=== PATIENT | male | born 1985 | race Caucasian/White ===

== ENCOUNTER 2023-01-11 | Outpatient (REF) | payer BC, SELFPAY ==
[2023-01-12 15:45] LABS: Bilirubin Urine NEGATIVE (NEGATIVE); Blood Urine TRACE-I (NEGATIVE); Clarity Urine CLEAR (CLEAR); Color Urine YELLOW (YELLOW); Glucose Urine UA NEGATIVE (NEGATIVE); Ketones Urine NEGATIVE (NEGATIVE); Leukocyte Esterase Urine NEGATIVE (NEGATIVE); Nitrite Urine NEGATIVE (NEGATIVE); Protein Urine NEGATIVE (NEG/TRACE); Specific Gravity Urine 1.025 (1.005-1.025); Urobilinogen Urine 0.2 EU/dL (0.2-1.0)
[2023-01-12 15:47] LABS: Urine Microscopic Indicated YES
[2023-01-12 15:57] LABS: Bacteria Urine TRACE #/HPF (NONE SEEN); Cast Seen? NONE SEEN #/LPF (NONE SEEN); Crystals Seen? None Seen #/HPF (None Seen); Mucus Urine TRACE (NONE SEEN); Squamous Epithelial Cell Urine RARE #/LPF (NONE/RARE); WBC Urine 0-2 #/HPF (NONE SEEN)
== END 2023-01-11 00:01 | disposition home or self-care (01) ==
LOC: LAB
PROVIDERS: PCP Nurse Practitioner Primary Care; Visit Provider Nurse Practitioner Primary Care
DX: R39.11 Hesitancy of micturition (principal)
CPT/HCPCS: 81001; 87086

== ENCOUNTER 2023-01-11 16:04 | Outpatient (OUT) | payer BC, SELFPAY ==
[2023-01-11 16:54] LABS: Alanine Aminotransferase 25 U/L (16-63); Albumin Globulin Ratio 1.1; Albumin Level 3.9 g/dL (3.4-5.0); Alkaline Phosphatase 71 U/L (46-116); Anion Gap 10.5; Aspartate Amino Transferase 16 U/L (15-37); BUN Creatinine Ratio 10.3; Bilirubin Total 0.6 mg/dL (0.2-1.0); Calcium 8.8 mg/dL (8.5-10.1); Carbon Dioxide 27.5 mmol/L (21.0-32.0); Chloride 104 mmol/L (98-107); Estimated GFR (African America >60 (>=60); Estimated GFR (Non-African Ame >60 (>=60); Globulin 3.4 g/dL; Glucose 93 mg/dL (74-106); Sodium 138 mmol/L (136-145); Total Protein 7.3 g/dL (6.4-8.2)
[2023-01-11 18:41] LABS: Prostate Specific Antigen Dx 1.37 ng/mL (<=4.00)
== END 2023-01-11 16:05 | disposition home or self-care (01) ==
PROVIDERS: PCP Nurse Practitioner Primary Care; Visit Provider Nurse Practitioner Primary Care
DX: R39.11 Hesitancy of micturition (principal)
CPT/HCPCS: 36415; 80053; 84153

== ENCOUNTER 2023-11-14 13:11 | Outpatient (OUT) | payer BC, SELFPAY | END 2023-11-14 13:12 | disposition home or self-care (01) | LOC: PST 13:11 | PROVIDERS: PCP Nurse Practitioner Primary Care; Visit Provider Surgery | DX: Z01.818 Encounter for other preprocedural examination (principal); K62.5 Hemorrhage of anus and rectum ==

== ENCOUNTER 2023-11-21 06:46 | Day surgery (SDC) | payer BC, SELFPAY ==
--- NOTE | 2023-11-21 | OP_ITS ---
OPERATION DATE: 11/21/2023 PREOPERATIVE DIAGNOSIS: Rectal bleeding. POSTOPERATIVE DIAGNOSIS: Sigmoid diverticulosis as well as 1.5 cm pedunculated polyp in the sigmoid colon. PROCEDURE: Colonoscopy to cecum with hot snare polypectomy x1 for sigmoid polyp. SURGEON: Ernie Farah M.D. ANESTHESIA: Monitored anesthesia care. ESTIMATED BLOOD LOSS: Less than 1 mL. INDICATIONS AND CONSENT: Patient is a 38-year-old male with history of intermittent rectal bleeding for the past month. Indications, risks, benefits, alternatives of proceeding with colonoscopy were explained extensively to the patient, including the risks of bleeding, colon perforation or anesthetic complications. All of his questions were answered. Informed consent was obtained. PROCEDURE: Patient brought to the operating room, placed in the left lateral decubitus position. Monitored anesthesia care was provided. Rectal exam was performed which showed no masses or blood. The scope was inserted into the anal canal. Under direct visualization was advanced. It was advanced to the cecum where cecal markings were clearly identified. There was noted to be a good prep. Upon withdrawal of the scope, mucosal surfaces were carefully examined. There were no mass lesions or inflammatory changes. There was moderate sigmoid diverticulosis without inflammatory changes or scarring. Within the distal sigmoid colon, there was noted to be a pedunculated, 1.5 cm erythematous polyp that was removed with hot snare with good hemostasis. The scope was retroflexed in the anal canal. There was no significant hemorrhoidal disease. There were some prominent rectal veins. No evidence of bleeding. Scope was then withdrawn. Patient tolerated procedure well, was sent to recovery room in good condition. f/u surveillance colonoscopy likely in 1 year, but will depend on pathology results. CC: RIKY Carranza
--- OUTSIDE RECORDS SUMMARY | 2023-11-21 06:48 | XMS_ITS | CCD ---
Author Organization [facility] [facility] Care Team Providers Care Can Solderer Name Role Phone Mila Michaud Unavailable DA STOVALL Consulting Unavailable SHAMMODA Attending Unavailable DA STOVALL Admitting Unavailable SHAMDA THOMSON Primary Care Unavailable LANDRY AUGUST Primary Care Physician Ernie NICK Attending Unavailable LANDRY AUGUST Referring Unavailable Allergies Allergy Classification Reported Allergen(s) Allergy Type Date of Onset Reaction(s) Facility Unclassified (1 source) No Known Medication Allergies; Translations: [No Known Medication Allergies] Propensity to adverse reactions (disorder) [facility] Repository Medications Current Medications Medication Drug Class(es) Dates Sig (Normalized) Sig (Original) cetirizine hydrochloride 10 mg oral tablet (1 source) Histamine-1 Receptor Antagonist Start: 05-26-2022 take 1 tablet by mouth every twenty-four hours Cetirizine HCl 10 MG 1 tablet Orally Once a day for 14 days Apr, Active fluticasone propionate 0.05 mg/actuat metered dose nasal spray (1 source) Corticosteroid Start: 05-26-2022 take 1 spray(s) nasal route twice daily Flonase Allergy Relief 50 MCG/ACT 1 spray in each nostril Nasally BID for 14 day(s) Apr, Active Problems Problem Classification Problem Date Documented Da te Episodic/Chronic Essential hypertension (1 source) Hypertensive disorder 09-13-2023 Chronic Gastrointestinal hemorrhage (2 sources) Hemorrhage of rectum and anus; Translations: [Hemorrhage of anus and rectum] Onset: Episodic Immunizations and screening for infectious disease (2 sources) Encounter for screening for human immunodeficiency virus [HIV]; Translations: [Encounter for screening for other viral diseases] Onset: 3 Episodic Other ear and sense organ disorders (1 source) Hearing loss 09-13-2023 Chronic Other gastrointestinal disorders (1 source) Chronic constipation 09-19-2023 Episodic Other screening for suspected conditions (not mental disorders or infectious disease) (1 source) Encounter for screening for cardiovascular disorders; Translations: [ENC FOR SCREENING FOR CV DISORDERS] Onset: 3 Episodic Other upper respiratory infections (1 source) Acute pharyngitis, unspecified Episodic Otitis media and related conditions (1 source) Other acute nonsuppurative otitis media, bilateral Episodic Residual codes; unclassified (1 source) Tobacco user 09-13-2023 Episodic Results Test Name Value Interpretation Reference Range Facility Insurance Correspondenceon 0 11-08-2023 Insurance Correspondence [id number]#1.00TIFF [facility] Consent for Procedure/Surger yon 09-20-2023 Consent for Procedure/Surgery [id number] 12#1.00TIFF [facility] Facesheeton 09-20-2023 Facesheet [id number] 271#1.00TIFF [facility] Ambulatory Visit Summaryon 0 09-19-2023 Ambulatory Visit Summary CODI ZUNIGAY Lacy :1985 Visit Date:09/19/2023 Ambulatory Visit Instructions Your Diagnosis Rectal bleeding Your Care Team Attending Physician - SANDOVAL OBANDO, Ernie Villasenor Primary Care Physician - LANDRY AUGUST CNP Referring Physician - LANDRY AUGUST CNP Procedures Performed Insertion of chest tube, Strabismus surgery. Discharge Vitals Heart Rate (Peripheral) 72 Respiratory Rate 16 Blood Pressure 114/78 Height 182.8 cm Height 72 in Weight 80.5 kg Weight 177.1 lb BMI 24.09 Allergies No Known Allergies No Known Medication Allergies Problems Ongoing - Any problem that you are currently receiving treatment for. Chronic constipation Hearing loss HTN (hypertension) Rectal bleeding Tobacco user Patient Survey You may receive a survey via text or e-mail asking about your office visit. Please share your experience with us by completing your survey. We appreciate your feedback and thank you for choosing us for your care. Normal [facility] Physician Referralon 024 Physician Referral [id number] [id number]#1.00TIFF Normal [facility] HEP C RNA BY PCR QUANT (NON- GRAPHICAL) Won 08-05-2022 HCV Genotype RTNI Normal [facility] Comment on above: Result Comment: Not indicated Performed By: #### H CVPCRN #### [facility] [address] [place] [address] Dr. Dante Kenney HCV log10 UPTCAL Normal [facility] Comment on above: Result Comment: Unab le to calculate result since non-numeric result obtained for component test. Performed By: #### H CVPCRN #### [facility] [address] [place] [address] Dr. Dante Kenney Hepatitis C Quantitation Not detected Normal [facility] Comment on above: Performed By: #### H CVPCRN #### [facility] [address] [place] [address] Dr. Dante Kenney Test Information: Comment Normal [facility] Comment on above: Result Comment: The quantitative range of this assay is 15 IU/mL to 100 million IU/mL. Performed By: #### H CVPCRN #### [facility] [address] [place] [address] Dr. Dante Kenney HIV 1 AND 2 WITH REFLEXon HIV Screen 4th Generation wRfx Non-Reactive Normal Non Reactive [facility] Comment on above: Result Comment: HIV Negative HIV-1/HIV-2 antibodies and HIV-1 p24 antigen were NOT detected. There is no laboratory evidence of HIV infection. Performed By: #### H IV12 #### [facility] [address] [place] [address] Dr. Datne Kenney GLYCOHEMOGLOBIN A1Con 2022 ADA RECOMMENDATION SEE BELOW Normal [facility] Comment on above: Result Comment: ADA RECOMMENDED LIMIT 4.0 - 6.0 ADA THERAPEUTIC TARGET < 7.0 ACTION SUGGESTED > 7.0 Performed By: #### A 1C #### [facility] [address] [place] [address] Dr. Dante Kenney Glucose [Mass/Vol] 105 mg/dL Normal [facility] Comment on above: Performed By: #### A 1C #### [facility] [address] [place] [address] Dr. Dante Kenney HbA1c (Bld) [Mass fraction] 5.3 % Normal 4.5-6.2 [facility] Comment on above: Performed By: #### A 1C #### [facility] [address] [place] [address] Dr. Dante Kenney HEMOGRAM AND PLATELon 2022 Hematocrit (Bld) [Volume fraction] 48.6 % Normal 42.0-54.0 [facility] Comment on above: Performed By: #### H H #### [facility] [address] [place] [address] Dr. Dante Kenney Hemoglobin (Bld) [Mass/Vol] 16.9 g/dL Normal 14.0-18.0 [facility] Comment on above: Performed By: #### H H #### [facility] [address] [place] [address] Dr. Dante Kenney MCH (RBC) [Entitic mass] 29.9 pg Normal 25.9-34.0 [facility] Comment on above: Performed By: #### H H #### [facility] [address] [place] [address] Dr. Dante Kenney MCHC (RBC) [Mass/Vol] 34.8 g/dL Normal 29.9-35.2 [facility] Comment on above: Performed By: #### H H #### [facility] [address] [place] [address] Dr. Dante Kenney MCV (RBC) [Entitic vol] 86.0 fL Normal 80.0-94.0 [facility] Comment on above: Performed By: #### H H #### [facility] [address] [place] [address] Dr. Dante Kenney PLT 342 103/ul Normal 150-450 [facility] Comment on above: Performed By: #### H H #### [facility] [address] [address] [address] Dante Kenney RBC 5.65 106/ul Normal 4.70-6.10 [facility] Comment on above: Performed By: #### H H #### [facility] [address] [address] [address] Dante Kenney WBC 5.9 103/ul Normal 4.0-11.0 [facility] Comment on above: Performed By: #### H H #### [facility] [address] [address] [address] Dante Kenney LIPID PROFILEon 08-04-2022 CHOL-HDL RATIO NORM SEE BELOW Normal [facility] Comment on above: Result Comment: 3.3 - 4.4 LOW RISK 4.4 - 7.1 AVERAGE RISK 7.1 - 11.0 MODERATE RISK >11.0 HIGH RISK Performed By: #### L IPID, CMP #### [facility] [address] [place] [address] Dr. Dante Kenney Cholesterol [Mass/Vol] 190 mg/dL Normal <=200 [facility] Comment on above: Performed By: #### L IPID, CMP #### [facility] [address] [place] [address] Dr. Dante Kenney Cholesterol in HDL [Mass/Vol] 40 mg/dL Normal 40-60 [facility] Comment on above: Performed By: #### L IPID, CMP #### [facility] [address] [address] [address] Dante Kenney Cholesterol in LDL [Mass/Vol] 122.4 mg/dL Normal [facility] Comment on above: Performed By: #### L IPID, CMP #### [facility] [address] [address] [address] Dante Kenney Cholesterol.total/Cho lesterol in HDL [Mass ratio] 4.8 {ratio} Normal [facility] Comment on above: Performed By: #### L IPID, CMP #### [facility] [address] [address] [address] Dante Kenney HDL NORMAL > or = 60 mg/dl - LOW CARDIOVASCULAR RISK <40 mg/dl - HIGH CARDIOVASCULAR RISK Normal [facility] Comment on above: Performed By: #### L IPID, CMP #### [facility] [address] [address] [address] Dante Kenney LDL CALC NORMAL SEE BELOW Normal [facility] Comment on above: Result Comment: <100 mg/dl OPTIMAL 100 - 129 mg/dl NEAR OR ABOVE OPTIMAL 130 - 159 mg/dl BORDERLINE HIGH 160 - 189 mg/dl HIGH >190 mg/dl VERY HIGH Performed By: #### L IPID, CMP #### [facility] [address] [address] [address] Dante Kenney Triglyceride [Mass/Vol] 138 mg/dL Normal <=150 [facility] Comment on above: Performed By: #### L IPID, CMP #### [facility] [address] [place] [address] Dr. Dante Kenney VLDL CALC 27.6 mg/dL Normal [facility] Comment on above: Performed By: #### L IPID, CMP #### [facility] [address] [place] [address] Dr. Dante Kenney PROF 14(COMP METB)on 023 Albumin [Mass/Vol] 4.2 g/dL Normal 3.4-5.0 [facility] Comment on above: Performed By: #### L IPID, CMP #### [facility] [address] [place] [address] Dr. Dante Kenney Albumin/Globulin [Mass ratio] 1.3 {ratio} Normal [facility] Comment on above: Performed By: #### L IPID, CMP #### [facility] [address] [place] [address] Dr. Dante Kenney ALP [Catalytic activity/Vol] 87 U/L Normal 46-116 [facility] Comment on above: Performed By: #### L IPID, CMP #### [facility] [address] [address] [address] Dante Kenney ALT [Catalytic activity/Vol] 54 U/L Normal 16-63 [facility] Comment on above: Performed By: #### L IPID, CMP #### [facility] [address] [address] [address] Dante Kenney Anion gap [Moles/Vol] 10.5 mmol/L Normal [facility] Comment on above: Performed By: #### L IPID, CMP #### [facility] [address] [address] [address] Dante Kenney AST [Catalytic activity/Vol] 23 U/L Normal 15-37 [facility] Comment on above: Performed By: #### L IPID, CMP #### [facility] [address] [address] [address] Dante Kenney Bilirubin [Mass/Vol] 0.4 mg/dL Normal 0.2-1.0 [facility] Comment on above: Performed By: #### L IPID, CMP #### [facility] [address] [place] [address] Dr. Dante Kenney Calcium [Mass/Vol] 9.0 mg/dL Normal 8.5-10.1 [facility] Comment on above: Performed By: #### L IPID, CMP #### [facility] [address] [address] [address] Dante Kenney Chloride [Moles/Vol] 103 mmol/L Normal 98-107 [facility] Comment on above: Performed By: #### L IPID, CMP #### [facility] [address] [address] [address] Dante Kenney CO2 [Moles/Vol] 28.7 mmol/L Normal 21.0-32.0 [facility] Comment on above: Performed By: #### L IPID, CMP #### [facility] [address] [address] [address] Dante Kenney Creatinine [Mass/Vol] 0.89 mg/dL Normal 0.70-1.30 [facility] Comment on above: Performed By: #### L IPID, CMP #### [facility] [address] [address] [address] Dante Kenney EGFR-AF GREENLANDIC >60 Normal >=60 [facility] Comment on above: Performed By: #### L IPID, CMP #### [facility] [address] [address] [address] Dante Kenney EGFR-NON AF GREENLANDIC >60 Normal >=60 [facility] Comment on above: Performed By: #### L IPID, CMP #### [facility] [address] [address] [address] Dante Kenney Globulin (S) [Mass/Vol] 3.3 g/dL Normal [facility] Comment on above: Performed By: #### L IPID, CMP #### [facility] [address] [address] [address] Dante Kenney Glucose [Mass/Vol] 95 mg/dL Normal 74-106 [facility] Comment on above: Performed By: #### L IPID, CMP #### [facility] [address] [address] [address] Dante Kenney Potassium [Moles/Vol] 4.2 mmol/L Normal 3.5-5.1 [facility] Comment on above: Performed By: #### L IPID, CMP #### [facility] [address] [address] [address] Dante Kenney Protein [Mass/Vol] 7.5 g/dL Normal 6.4-8.2 [facility] Comment on above: Performed By: #### L IPID, CMP #### [facility] [address] [address] [address] Dante Kenney Sodium [Moles/Vol] 138 mmol/L Normal 136-145 [facility] Comment on above: Performed By: #### L IPID, CMP #### [facility] [address] [address] [address] Dante Kenney Urea nitrogen [Mass/Vol] 11.0 mg/dL Normal 7.0-18.0 [facility] Comment on above: Performed By: #### L IPID, CMP #### [facility] [address] [address] [address] Dante Kenney Urea nitrogen/Creatinine [Mass ratio] 12.4 mg/mg Normal [facility] Comment on above: Performed By: #### L IPID, CMP #### [facility] [address] [place] [address] Dr. Dante Kenney Quick Strepon 05-26-2022 S. pyogenes Org specific cx Ql (Throat) Negative [email or web address] Other Quick Strep [facility] [employer] Other Vital Signs Date Time Vital Sign Value Performing Clinician Facility 09-19-2023 14:37-0400 Blood Pressure Location [facility] 09-19-2023 14:37-0400 Diastolic blood pressure 78 mm[Hg] [facility] 09-19-2023 14:37-0400 Heart rate 72 /min [facility] 09-19-2023 14:37-0400 Respiratory rate 16 /min [facility] 09-19-2023 14:37-0400 Systolic blood pressure 114 mm[Hg] [facility] 05-26-2022 15:15-0500 Body height 182.88 cm Mila [email or web address] Other [email or web address] Other 05-26-2022 15:15-0500 Body mass index (BMI) [Ratio] 25.09 kg/m2 Mila [email or web address] Other [email or web address] Other 05-26-2022 15:15-0500 Body temperature 98.9 [degF] Mila Michaud Other [email or web address] Other 05-26-2022 15:15-0500 Body weight 83.92 kg Mila Michaud Other [email or web address] Other 05-26-2022 15:15-0500 Respiratory rate 18 /min Mila Michaud Other [email or web address] Other 05-26-2022 15:15-0500 SaO2% (BldA) [Mass fraction] 99 % Mila Michaud Other [email or web address] Other Encounters Encounter Date Encounter Type Care Provider Facility Start: 09-19-2023 End: 09-19-2023 ambulatory Ernie NICK Facility:[facility] Start: 09-19-2023 End: 09-19-2023 Patient encounter procedure Ernie NICK [facility] [place] Start: 09-10-2023 ambulatory Ernie NICK Facility:[facility] Start: 08-08-2022 Encounter for genera l adult medical examination without abnormal findings DA [facility] Start: 08-04-2022 End: 08-05-2022 ambulatory DA SHAMMO Facility:[facility] Start: 08-04-2022 End: 08-05-2022 Encounter for general adult medical examination without abnormal findings DA SHAMMN Facility: Start: 05-26-2022 End: 05-26-2022 ambulatory Mila Michaud Other [email or web address] Other Start: 05-26-2022 Office outpatient ne w 30 minutes Mila Michaud [facility] Procedures Date Procedure Procedure Detail Performing Clinician Insertion of pleural tube drain Ernie NICK Strabismus surgery Ernie DUNLAP Payers Date Payer Category Payer Unknown [id number] 1985 Unknown [id number] 1960 [facility] [id number] Social History Date Type Detail Facility Unknown if ever smoked [email or web address] Other Sex Assigned At [facility] Start: 09-19-2023 Tobacco smoking status Heavy tobacco smoker (finding) [facility] Tobacco smoking status Smokeless tobacco user within last 30 days [facility] Functional Status Date Assessment Result Facility 09-19-2023 Functional Status N/A [facility] Clinical Note 09-19-2023 Note Date & Type Note Facility 09-19-2023 Note Chief Complaint consultation for bowel changes and rectal bleeding HPI Staff 38 year old male presents on consultation from [place] [facility] for change in bowel habits and rectal bleeding. Reports chronic constipation for many years. Verbalized he has never tried any bowel medication in the past. Reports several week history of intermittent rectal bleeding with bowel movements. Reports noting blood on stool with occasional bright red blood with wiping. Denies straining for bowel movements. Denies rectal pain. No abdominal pain, nausea or vomiting. Never had colonoscopy in the past. No known family history of colon cancer of inflammatory bowel diseases. History of Present Illness 38 yo male with h/o htn, referred for rectal bleeding; patient reports 1 month h/o intermittent rectal bleeding, red blood on outside of stool and with wiping; no abd or rectal pain, no hemorrhoid prolapse; no abd operations or previous colonoscopies; no asa or NSAID use; no fmhx of GI malignancy or IBD; smokes daily. Review of Systems PHQ Score Initial Depression Screen Score: 0 SCORE ROS - Provider Constitutional: no fever, no sweats, no weight loss. Eyes: no glasses, no blurred vision, no visual loss. ENMT: no dentures, no hoarseness, no swallowing difficulties, no hearing loss, no ear infection(s), no nose bleeds. Cardiovascular: normal blood pressure, no chest pain, regular heartbeat, no heart murmur. Respiratory: no shortness of breath, no cough, no asthma, no wheezing. Gastrointestinal: no nausea, no vomiting, no diarrhea, no constipation, no blood in stool, no change in bowel habits, no abdominal pain, no hepatitis. Genitourinary: no kidney stones, no urine infection, no dysuria. Musculoskeletal: no pain, no weakness. Skin: no changing moles, no rash, no skin lumps. Neurologic: no seizures, no epilepsy, no headache. Psychiatric: no emotional or psychiatric problem. Heme/Lymph: no bleeding problems, no anemia, no blood clots, no transfusions. Allergy/Immunologic: no swollen lymph nodes/glands, no IV drug abuse. Other: Additional ROS info: Except as noted in the above Review of Systems and in the History of Present Illness, all other systems have been reviewed and are negative or noncontributory. Physical Exam Vitals & Measurements HR: 72(Peripheral) RR: 16 BP: 114/78 HT: 72 in HT: 182.8 cm WT: 80.5 kg WT: 177.1 lb BMI: 24.09 HEENT: normal conjunctiva, sclera clear, no scleral icterus, EOM intact, PERRLA, oral mucosa moist without lesions. Neck: trachea midline, no mass, symmetric, no thyromegaly or nodules, no adenopathy Respiratory: lungs CTA, respirations non labored. Cardiovascular: regular rate and rhythm, no murmur, no pedal edema or varicosities. Gastrointestinal: soft, non distended, no tenderness, no masses, no palpable hernias, diastasis recti no, no hepatosplenomegaly; normal bs Lymphatic: no cervical adenopathy, no supraclavicular adenopathy. Musculoskeletal: normal gait, digits and nails without infection, nodes, cyanosis, clubbing. Skin: no rashes, no lesions, no ulcers, no subcutaneous nodules, induration. Psychiatric/Neuro: oriented to time, place, person, judgement normal, affect appropriate for age, insight intact, no focal deficits. Tests: , review of old records completed , Discussed surgical options, risks, and possible complications with patient. Assessment/Plan 1. Rectal bleeding (K62.5: Hemorrhage of anus and rectum) plan colonoscopy under anesthesia for further evaluation, informed consent obtained. Follow-up No qualifying data available Problem List/Past Medical History Ongoing Chronic constipation Hearing loss HTN (hypertension) Rectal bleeding Tobacco user Historical No qualifying data Procedure/Surgical History Insertion of chest tube, Strabismus surgery. Medications No active medications Allergies No Known Allergies No Known Medication Allergies Social History Alcohol - Denies Alcohol Use, 09/19/2023 Substance Abuse - Denies Substance Abuse, 09/19/2023 Tobacco 10 or more cigarettes (1/2 pack or more)/day in last 30 days Tobacco Use:. Smokeless tobacco user within last 30 days Smokeless Tobacco Use:. Cigarettes, Vaping, 0.5 per day. Started age 15.0 Years. Yes, 09/19/2023 Family History COPD: Mother. Diabetes mellitus type 2: Father. [facility] Comment on above: Result Comment: Elec tronically Signed By: SANDOVAL OBANDO, Ernie Parr\Date and Time Signed: 09/19/23 15:05 EDT Evaluation note 05-26-2022 Note Date & Type Note Facility 05-26-2022 Evaluation note Encounter Date Diagnosis Assessment Notes Apr, Sore throat (ICD-10 - J02.9) Rapid Strep test negative, see above treatment plan Apr, Acute effusion of both middle ears (ICD-10 - H65.193) Discussed diagnosis with patient, explained to patient that there is middle ear fluid without signs of bacterial infection, antibiotics are not indicated at this time. This is commonly due to ET dysfunction, viral illness, allergies, barotrauma, or recent AOM. Advised patient that fluid in middle ear may take several weeks to resolve. Take medications as directed. Supportive treatment as directed, push fluids/test, Tylenol/Motrin for discomfort. Follow up with PCP in 2 weeks or sooner for new or worsening symptoms. Patient verbalizes understanding and is agreeable to treatment plan [email or web address] Other Evaluation + Plan note Note Date & Type Note Facility Evaluation + Plan note No data available for this section [facility] general Narrative - Reported Note Date & Type Note Facility History general Narrative - Reported Type Surgical History thoracotomy Hospitalization History See Above [email or web address] Other Hospital Discharge instructions Note Date & Type Note Facility Hospital Discharge instructions No data available for this section [facility] note Note Date & Type Note Facility Progress note No data available for this section [facility] Summary Purpose Family History No Family History Records Found No data available for this section No Family History Records Found Advance Directives No Advanced Directives Records FoundNo Advanced Directives Records Found Additional Source Comments REASON FOR VISIT (unrecogniz ed section and content) SORE THROAT (unrecognized sect ion and content) No Status Records FoundNo Status Records Found INFORMATION SOURCE (unrecogn ized section and content) DATE CREATED AUTHOR 08/09/2022 [facility] DATE CREATED AUTHOR AUTHOR'S ORGANIZ ATION 11/09/2023 [facility] Patient Care team informatio n (unrecognized section and content) Personnel Name: LANDRY AUGUST CNP Address: Address: [facility] [id number] FOR RECORDS PERTAINING TO PATIENTS WHO ARE OR HAVE BEEN ENROLLED IN A CHEMICAL DEPENDENCY/SUBSTANCEABUSE PROGRAM, SOME INFORMATION MAY BE OMITTED. This clinical summary was aggregated from multiple sources. Caution should be exercised in using it in the provision of clinical care. This summary normalizes information from multiple sources, and as a consequence, information in this document may materially change the coding, format and clinical context of patient data. In addition, data may be omitted in some cases. CLINICAL DECISIONS SHOULD BE BASED ON THE PRIMARY CLINICAL RECORDS. [facility]. provides no warranty or guarantee of the accuracy or completeness of information in this document.
[2023-11-21 06:55] VITALS: BMI 24.2
[2023-11-21 07:16] VITALS: BP 143/94; PULSE 90; TEMP 36.2; O2SAT 99
[2023-11-21] MEDS: FAMOTIDINE/PF 20 MG/2 ML VIAL IV (07:20)
[2023-11-21] MEDS: LACTATED RINGER'S SOLUTION 1,000 ML 50 ML IV (07:20)
[2023-11-21 08:56] VITALS: BP 110/75; PULSE 95; TEMP 36.3; O2SAT 97
[2023-11-21 09:11] VITALS: BP 120/95; PULSE 82; O2SAT 100
[2023-11-21 09:26] VITALS: BP 130/94; PULSE 72; O2SAT 100
== END 2023-11-21 09:26 | disposition home or self-care (01) ==
PROVIDERS: Visit Provider Surgery
PROC: (CPT 00811; principal; 2023-11-21 07:45)
DX: K62.5 Hemorrhage of anus and rectum (principal); K57.30 Diverticulosis of large intestine without perforation or abscess without bleeding; D12.5 Benign neoplasm of sigmoid colon; K59.09 Other constipation; F17.290 Nicotine dependence, other tobacco product, uncomplicated; I10 Essential (primary) hypertension; H91.90 Unspecified hearing loss, unspecified ear
CPT/HCPCS: 00811; 45385; 88305; J2704